=== PATIENT | female | born 1985 | race Caucasian/White ===

== ENCOUNTER 2021-06-30 14:26 | Emergency (ER) | payer OTHER, SELFPAY ==
[2021-06-30 14:28] VITALS: BP 120/48; PULSE 50; RESP 18; TEMP 36.8; O2SAT 98; BMI 29.0
--- NOTE | 2021-06-30 14:53 | PC.NURSE ---
patient again was noted to have seizure like activity- charge nurse was notified, family with her stated she will continue having seizures until her pain is under control, patient is not noted to be post-ictal after her seizure, pt is not incontinent. pt was given a pillow for comfort. family stated she felt she wanted to bring the patient back to [facility] and decide to leave without being treated in this ed.
== END 2021-06-30 18:13 | disposition left against medical advice (07) ==
PROVIDERS: Emergency Provider Emergency Medicine
DX: R10.9 Unspecified abdominal pain (principal)
CPT/HCPCS: 99281; 99282